=== PATIENT | male | born 1965 | race Caucasian/White ===

== ENCOUNTER 2019-01-30 00:47 | Inpatient (IN) | payer MEDICARE, MEDICAID ==
[~2019-01-30] VITALS: Ht 180.3 cm; Wt 76.2 kg
[2019-01-30 03:00] VITALS: BP 107/67
[2019-01-30] MEDS ORDERED: MAGNESIUM HYDROXIDE 30 ML UDC PO PRN (03:00)
[2019-01-30] MEDS ORDERED: ZOLPIDEM TARTRATE 5 MG TABLET PO PRN (03:00)
[2019-01-30] MEDS ORDERED: ONDANSETRON HCL/PF 4 MG/2 ML VIAL IVP PRN (03:00)
[2019-01-30] MEDS ORDERED: MORPHINE SULFATE INJ 2 MG/ML DISP.SYRIN IV PRN (03:00)
[2019-01-30] MEDS ORDERED: LORAZEPAM INJ 2 MG/ML VIAL IV PRN (03:00)
[2019-01-30] MEDS ORDERED: MAG HYDROX/AL HYDROX/SIMETH 30 ML UDC PO PRN (03:00)
[2019-01-30] MEDS ORDERED: HYDROCODONE/APAP 5/325MG 1 EACH TABLET PO PRN (03:00)
--- NOTE | 2019-01-30 03:00 | NUR ---
TD ACCOUNT INSTALLATION SPECIALIST NOTE: PT ADMITTED FROM [facility] WITH ADMITTING DIAGNOSIS OF SEPSIS SECONDARY TO RHABDOMYOLYSIS. PT IS ALERT AND ORIENTED X4. ABLE TO MAKE NEEDS KNOWN. NO APPARENT DISTRESS NOTED AT THIS TIME. ON ROOM AIR, BREATHING EVEN AND UNLABORED WITH NORMAL RESPIRATIONS. SINUS TACHY ON TELE MONITOR HR 110 BPM. PT HAS IV ON RIGHT FOREARM #20 INTACT AND PATENT, NO SIGNS/SYMPTOMS OF INFILTRATION NOTED. PERTINENT ASSESSMENTS DONE, RASH NOTED ON BUTTOCKS, PICTURE TAKEN AND PLACED ON CHART. KEPT CLEAN, DRY AND COMFORTABLE. CALL LIGHT PLACED WITHIN REACH. SIDE RAILS UP X2. BED ALARM ON. BED LOCKED AND IN LOWEST POSITION. WILL CONTINUE TO MONITOR PT.
[2019-01-30] MEDS ORDERED: EMTR1TAB18 PO (03:19)
[2019-01-30] MEDS ORDERED: TRAZ-214 PO (03:19)
[2019-01-30] MEDS ORDERED: ARIP20TA10 PO (03:19)
[2019-01-30 04:00] VITALS: BP 116/68
[2019-01-30] MEDS: IV NS 0.9% 1,000 ML IV PRN ×3 (04:02→23:38)
[2019-01-30] MEDS: ACETAMINOPHEN 325 MG TABLET PO PRN ×2 (04:02→16:10)
[2019-01-30] MEDS ORDERED: PIPERACILLIN /TAZOBACTAM 3.375 G VIAL IV ONE (04:50)
[2019-01-30] MEDS ORDERED: PIPERACILLIN /TAZOBACTAM 3.375 G in IV D5W 50 ML IV SCH (05:00)
--- NOTE | 2019-01-30 05:25 | NUR ---
TD RN NOTE: TEMP WENT UP TO 103.3. TYLENOL GIVEN AND COOLING MEASURES PROVIDED, RECHECKED TEMP IT WENT DOWN TO 100.3. WILL CONTINUE TO MONITOR PT.
--- NOTE | 2019-01-30 06:53 | NUR ---
TD RN NOTE: PT IN BED, ASLEEP BUT AROUSES EASILY TO VERBAL AND TACTILE STIMULI. NO ACUTE DISTRESS NOTED. DENIES PAIN AND DISCOMFORT AT THIS TIME. ON TELE MONITOR SINUS RHYTHM HR 98 BPM. RIGHT FOREARM #20 INTACT AND PATENT, IVF INFUSING WELL. KEPT CLEAN, DRY AND COMFORTABLE. SAFETY AND FALL PRECAUTIONS OBSERVED AND MAINTAINED. WILL ENDORSE TO DAY SHIFT RN FOR CONTINUITY OF CARE.
[2019-01-30 07:32] LABS: BASOPHILS % (AUTO) 0.2 % (0.0-2.0); HEMATOCRIT 42 % (39-51); HEMOGLOBIN 13.8 g/dL (13.5-17.5); LYMPHOCYTES # (AUTO) 1.1 /CMM (0.8-4.8); LYMPHOCYTES % (AUTO) 8.2 % (20.0-44.0); MEAN CORPUSCULAR HGB CONC 33 g/dl (31.0-36.0); MEAN CORPUSCULAR VOLUME 95 fL (80-96); MONOCYTES # (AUTO) 0.7 /CMM (0.1-1.30); MONOCYTES % (AUTO) 5.1 % (2.0-12.0); NEUTROPHILS # (AUTO) 11.3 /CMM (1.8-8.9); NEUTROPHILS % (AUTO) 86.5 % (43.0-81.0); PLATELET COUNT (AUTO) 142 /CMM (150-450); WHITE BLOOD COUNT (AUTO) 13.1 K/uL (4.3-11.0)
--- NOTE | 2019-01-30 07:35 | NUR ---
RN NOTE: RECEIVED PATIENT IN BED, ASLEEP BUT AROUSABLE WITH TACTILE STIMULI AND VERBAL CUES. RESPIRATION EVEN AND UNLABORED SATURATING 99% W/ O2 2L/MIN VIA NC. (R) FA IV SITE NOTED PATENT AND INTACT INFUSING NS @125ML/HR. HOB ELEVATED. PATIENT REFUSED TO EAT BREAKFAST. PATIENT WAS WARM TO TOUCH. COOLING MEASURES IMPLEMENTED. CALL LIGHT WITHIN REACH. NEEDS ANTICIPATED.
[2019-01-30 07:51] LABS: BILIRUBIN,DIRECT 0.2 mg/dL (0.0-0.2); BILIRUBIN,TOTAL 1.4 mg/dL (0.2-1.0); CALCIUM, SERUM 7.2 mg/dL (8.5-10.1); CREATININE 1.3 mg/dL (0.6-1.3); POTASSIUM 3.4 mmol/L (3.5-5.1); TOTAL PROTEIN, SERUM 6.2 g/dL (6.4-8.2)
[2019-01-30 08:00] VITALS: BP 102/65
[2019-01-30] MEDS: PANTOPRAZOLE 40 MG TABLET.DR PO SCH (08:52)
[2019-01-30 09:50] LABS: THYROID STIMULATING HORMONE 0.984 uIU/mL (0.358-3.74)
[2019-01-30] MEDS ORDERED: PIPERACILLIN /TAZOBACTAM 3.375 G in IV D5W 100 ML IV SCH (10:00)
[2019-01-30] MEDS ORDERED: FEE PK DOSING 1 MIN EA MC ONE (10:46)
[2019-01-30] MEDS: VANCOMYCIN 1 GM in IV D5W 250 ML IV SCH ×2 (10:47→21:00)
[2019-01-30] MEDS: POTASSIUM CHLORIDE 20 MEQ TAB.PRT.SR PO SCH ×3 (10:57→12:55)
[2019-01-30 12:00] VITALS: BP 116/67
[2019-01-30] MEDS ORDERED: Z GUARD REMEDY 2 OZ OINT TP PRN (12:00)
[2019-01-30] MEDS: PIPERACILLIN /TAZOBACTAM 3.375 G in IV D5W 100 ML IV SCH ×2 (13:02→21:06)
--- NOTE | 2019-01-30 14:15 | NUR ---
RN NOTE: STOOL FOR C. DIFF WAS COLLECTED PER DR. LUQUE AND WAS SENT TO LAB. STOOL WAS GREENISH IN COLOR AND SLIGHTLY LIQUID IN FORM. SOON, CHARGE NURSE AWARE OF IT.
--- NOTE | 2019-01-30 14:20 | NUR ---
RN NOTE: PATIENT WAS PLACED ON CONTACT ISOLATION FOR POSSIBLE C. DIFF.
[2019-01-30 16:00] VITALS: BP 124/74
--- NOTE | 2019-01-30 17:30 | NUR ---
RN NOTE: PATIENT'S CURRENT TEMPERATURE WAS 100.8F AND COOLING MEASURES WERE IMPLEMENTED.
--- NOTE | 2019-01-30 19:30 | NUR ---
MS RN NOTE: RECEIVED PT ON BED ALERT AND ORIENTED X3, ABLE TO MAKE NEEDS KNOWN. NO APPARENT DISTRESS NOTED. NO COMPLAINTS OF PAIN OR DISCOMFORT AT THIS TIME. NO SIGNS/SYMPTOMS OF WITHDRAWAL NOTED. ON NASAL CANNULA, 2LPM SATURATING WELL. IV ON RIGHT FOREARM #20 AND #22 INTACT AND PATENT, IVF INFUSING WELL. KEPT CLEAN, DRY AND COMFORTABLE. SAFETY AND FALL PRECAUTIONS OBSERVED AND MAINTAINED. WILL CONTINUE TO MONITOR PT.
--- NOTE | 2019-01-30 19:44 | NUR ---
RN NOTE: BEDSIDE REPORT WAS GIVEN TO PM SHIFT NURSE FOR CONTINUITY OF CARE. PATIENT ON CONTACT ISOLATION FOR POSSIBLE C. DIFF. AND CD4/CD8 RATIO WAS STILL PENDING AND LAB TEST WAS A SENT OUT.
[2019-01-30 20:00] VITALS: BP 115/68
[2019-01-30] MEDS: LOPERAMIDE HCL (2 MG CAP) 2 MG CAPSULE PO PRN (23:37)
--- NOTE | 2019-01-30 23:45 | NUR ---
MS RN NOTE: PT HAD AN EPISODE OF SOFT WATERY STOOL X5. STOOL WAS ALREADY SENT FOR C. DIFF BY DAY SHIFT NURSE, RESULT STILL PENDING. DR. TRIPLETT MADE AWARE AND HE ORDERED IMODIUM 2MG Q4HR PRN. ORDER CARRIED OUT AND DONE. WILL CONTINUE TO MONITOR PT.
[2019-01-31 04:00] VITALS: BP 115/59
[2019-01-31] MEDS: ACETAMINOPHEN 325 MG TABLET PO PRN (04:26)
[2019-01-31] MEDS: LOPERAMIDE HCL (2 MG CAP) 2 MG CAPSULE PO PRN (04:26)
[2019-01-31] MEDS: PIPERACILLIN /TAZOBACTAM 3.375 G in IV D5W 100 ML IV SCH ×2 (05:50→13:26)
[2019-01-31 06:08] LABS: *BASOS 0 % (Not Estab.); *EOS 0 % (Not Estab.); *HCT 38.6 % (37.5-51.0); *HGB 13.3 g/dL (13.0-17.7); *IMMATURE GRANULOCYTES 0 % (Not Estab.); *LYMPHOCYTES 10 % (Not Estab.); *LYMPHS, ABSOLUTE 1.2 x10E3/uL (0.7-3.1); *MCH 31.7 pg (26.6-33.0); *MCHC 34.5 g/dL (31.5-35.7); *MCV 92 fL (79-97); *MONOCYTES 6 % (Not Estab.); *MONOS, ABSOLUTE 0.7 x10E3/uL (0.1-0.9); *NEUTROPHILS 84 % (Not Estab.); *NEUTROPHILS, ABSOLUTE 10.8 x10E3/uL (1.4-7.0); *PLT 147 x10E3/uL (150-450); *RDW 14.4 % (12.3-15.4)
[2019-01-31 06:16] LABS: BASOPHILS % (AUTO) 0.4 % (0.0-2.0); EOSINOPHILS % (AUTO) 1.4 % (0.0-6.0); HEMATOCRIT 40 % (39-51); HEMOGLOBIN 13.1 g/dL (13.5-17.5); LYMPHOCYTES # (AUTO) 1.1 /CMM (0.8-4.8); LYMPHOCYTES % (AUTO) 12.9 % (20.0-44.0); MEAN CORPUSCULAR HGB CONC 33 g/dl (31.0-36.0); MEAN CORPUSCULAR VOLUME 95 fL (80-96); MONOCYTES # (AUTO) 0.4 /CMM (0.1-1.30); MONOCYTES % (AUTO) 4.9 % (2.0-12.0); NEUTROPHILS # (AUTO) 6.6 /CMM (1.8-8.9); NEUTROPHILS % (AUTO) 80.4 % (43.0-81.0); PLATELET COUNT (AUTO) 125 /CMM (150-450); RED BLOOD CELL COUNT(AUTO) 4.17 MIL/uL (4.5-6.0); WHITE BLOOD COUNT (AUTO) 8.2 K/uL (4.3-11.0)
--- NOTE | 2019-01-31 06:43 | NUR ---
MS RN NOTE: NO CHANGES NOTED THROUGHOUT THE SHIFT. NO APPARENT DISTRESS NOTED. DENIES PAIN AND DISCOMFORT AT THIS TIME. ON ROOM AIR, BREATHING EVEN AND UNLABORED WITH NORMAL RESPIRATIONS. PT HAD BOWEL MOVEMENT 6X, IMODIUM GIVEN ORDERED. KEPT CLEAN, DRY AND COMFORTABLE. SAFETY AND FALL PRECAUTIONS OBSERVED AND MAINTAINED. WILL ENDORSE TO DAY SHIFT RN FOR CONTINUITY OF CARE.
--- NOTE | 2019-01-31 07:00 | NUR ---
MS RN OPENING NOTES RECEIVED PT LYING ON BED,ALERT/ORIENTED X3.ON ROOM AIR,TOLERATING WELL.NO SOB AND ACUTE DISTRESS NOTED.CAN AMBULATE WITH ASSISTANCE.IV LINE IS ON RIGHT FA G20 WITH IV NS @125ML/HR IS RUNNING AND IN RIGHT FA G22,SL.SITE IS CLEAN,DRY AND INTACT.NO INFILTRATION NOTED.SAFETY IS MAINTAINED AT ALL TIMES.BED IS IN LOW POSITION AND LOCKED,CALL LIGHT IS WITHIN REACH.WILL CONTINUE TO MONITOR THE PT CLOSELY.
[2019-01-31 07:27] LABS: CALCIUM, SERUM 7.6 mg/dL (8.5-10.1); CREATININE 1.1 mg/dL (0.6-1.3); PHOSPHORUS 2.3 mg/dL (2.5-4.9); POTASSIUM 3.1 mmol/L (3.5-5.1)
[2019-01-31 07:33] LABS: APPEARANCE,URINE SL CLOUDY (CLEAR); BILIRUBIN,URINE NEGATIVE (NEGATIVE); BLOOD, URINE TRACE Ery/uL (NEGATIVE); COLOR,URINE YELLOW (YELLOW); KETONES,URINE NEGATIVE (NEGATIVE); LEUKOCYTE ESTERASE ,URINE NEGATIVE (NEGATIVE); NITRITE, URINE NEGATIVE (NEGATIVE); PROTEIN,URINE TRACE mg/dl (NEGATIVE); UGLUCOSE NEGATIVE (NEGATIVE); UROBILINOGEN,URINE 0.2 EU/dL (0.2)
[2019-01-31] MEDS: PANTOPRAZOLE 40 MG TABLET.DR PO SCH (07:47)
[2019-01-31 08:00] VITALS: BP 104/61
[2019-01-31] MEDS: IV NS 0.9% 1,000 ML IV PRN (08:25)
[2019-01-31 08:38] LABS: BACTERIA,URINE Rare /HPF (None Seen); RBC,URINE 0-2 /HPF (0-2); SQUAMOUS EPITHELIAL CELL,UR Rare /HPF (None Seen); WBC,URINE 0-2 /HPF (0-3)
[2019-01-31] MEDS: VANCOMYCIN 1 GM in IV D5W 250 ML IV SCH (09:57)
[2019-01-31] MEDS: POTASSIUM CHLORIDE 20 MEQ TAB.PRT.SR PO SCH ×2 (09:57→11:27)
[2019-01-31] MEDS ORDERED: K PHOS NEUTRAL 250 MG TABLET PO ONE (11:30)
[2019-01-31] MEDS ORDERED: CHOLESTYRAMINE/ASPARTAME 4 G/PKT PACKET PO SCH (12:00)
--- NOTE | 2019-01-31 12:00 | NUR ---
MS RN NOTES PT IS REQUESTING TO GO HOME TODAY WHILE BRIDGER LUQUE MADE THE PT ROUNDS AT BEDSIDE.DNP SAID OK TO D/C HOME TODAY.NEW ORDERS NOTED AND CARRIED OUT.
[2019-01-31] MEDS ORDERED: LEVO500T75 PO (12:32)
--- NOTE | 2019-01-31 14:10 | NUR ---
MS CALDWELL NOTE: PER PATIENT REQUEST, DISCHARGED PATIENT AND BROUGHT TO LOBBY TO WAIT FOR FRIEND TO PICK HIM UP. VERBALLY STATED THAT HE IS OK TO WAIT IN THE LOBBY WITHOUT ANY NURSING STAFF. INFORMED SECURITY ON DUTY ABOUT DISCHARGED PATIENT AWAITING PIGMENT PUMPER FROM FRIEND. Addendum: 01/31/19 at 1518 by RONY RODRIGUEZ RN ALL THE DISCHARGE MEDICATIONS AND INSTRUCTIONS GIVEN TO THE PT AND MEDICINE PRESCRIPTION HANDLED TO THE PT.IV LINE IS REMOVED,NO BLEEDING NOTED.ALL THE BELONGINGS TAKEN AND PAPER SIGNED BY THE PT.AMBULATED TO THE FRONT LOBBY BY SELF.ON ROOM AIR,TOLERATING WELL.NO COMPLICATIONS NOTED. Addendum: 01/31/19 at 1519 by RONY RODRIGUEZ RN PT IS IN FRONT LOBBY AWAITING FOR HIS FRIEND JENNIFER FOR PICKING UP.[facility] [phone]
[2019-01-31] MEDS ORDERED: LACTOBACILLUS RHAMNOSUS GG 1 EACH CAP.SPRINK PO SCH (17:00)
[2019-01-31] MEDS ORDERED: VANCOMYCIN 1 GM in IV D5W 250 ML IV SCH (18:00)
[2019-02-01 10:11] LABS: *% CD 4 POS. LYMPH 33.5 % (30.8-58.5); *% CD 8 POS. LYMPH 32.3 % (12.0-35.5); *ABSOLUTE CD 4 HELPER 402 /uL (359-1519); *ABSOLUTE CD 8 SUPPRESSOR 388 /uL (109-897); *CD4/CD8 RATIO 1.04 (0.92-3.72)
== END 2019-01-31 14:00 | disposition home or self-care (01) | DRG 974 ==
LOC: TELE-TD 02:29 → TELE1 13:17 → MEDSG1 13:20
PROVIDERS: ADMIT Nurse Practitioner Acute Care; ATTEND Nurse Practitioner Acute Care
DX: A41.9 Sepsis, unspecified organism (principal); G92 Toxic encephalopathy; B20 Human immunodeficiency virus [HIV] disease; N17.9 Acute kidney failure, unspecified; M62.82 Rhabdomyolysis; B25.9 Cytomegaloviral disease, unspecified; F32.9 Major depressive disorder, single episode, unspecified; F43.10 Post-traumatic stress disorder, unspecified; E83.39 Other disorders of phosphorus metabolism; E87.6 Hypokalemia; E83.51 Hypocalcemia; F15.90 Other stimulant use, unspecified, uncomplicated; K62.3 Rectal prolapse; Z98.890 Other specified postprocedural states; Z79.899 Other long term (current) drug therapy; Y92.9 Unspecified place or not applicable; T50.905A Adverse effect of unspecified drugs, medicaments and biological substances, initial encounter; D69.6 Thrombocytopenia, unspecified; E88.09 Other disorders of plasma-protein metabolism, not elsewhere classified; N18.9 Chronic kidney disease, unspecified; F22 Delusional disorders
CPT/HCPCS: 36415; 76700-TC; 80048-TC; 80076-TC; 80202-TC; 81000-TC; 82140-TC; 82550-TC; 83735-TC; 84100-TC; 84439-TC; 84443-TC; 85025-TC; 86360; 87040-TC; 87081-TC; 93307-TC; G0378; J2543; J3370; J7030; J7060